=== PATIENT | male | born 1980 | race Caucasian/White ===

== ENCOUNTER 2017-07-28 01:03 | Emergency (ER) | payer SELFPAY ==
[2017-07-28 01:09] VITALS: BP 122/74; PULSE 117; RESP 16; O2SAT 100
[2017-07-28] MEDS ORDERED: SODIUM CHLOR 0.9% 1000 ML INJ 1,000 ML IV SCH (01:35)
[2017-07-28] MEDS ORDERED: SODIUM CHLORIDE 0.9% FLUSH 10 ML FLUSH IV FLUSH PRN (01:45)
[2017-07-28 01:55] VITALS: O2SAT 98
--- NOTE | 2017-07-28 02:36 | PD ---
HPI Chief Complaint: Alcohol/Drug Intoxication Time Seen by Provider: 01:19 Travel History International Travel<30 days: No Contact w/Intl Traveler<30days: No Traveled to known affect area: No History of Present Illness HPI 36-year-old male arrives to the ER by EMS. He was found unresponsive in public. He received Narcan and woke up. He reports abusing IV heroin tonight. Typically he abuses IV methamphetamines. He denies any intention of harming himself or others. There is no suicidal ideation or homicidal ideation. PFSH Past Medical History Tetanus Vaccination: Unknown Influenza Vaccination: No Social History Alcohol Use: Yes Tobacco Use: Yes Substance Use: Yes (dilaudid, meth and heroin) Allergies-Medications (Allergen,Severity, Reaction): Coded Allergies: No Known Allergies (Unverified , 07/28/17) Review of Systems Except as stated in HPI: all other systems reviewed are Neg General / Constitutional: No: Fever Physical Exam Narrative GENERAL: 36-year-old male well-nourished well-developed no acute distress GCS 15 answers questions Vital Signs Date Time Temp Pulse Resp B/P (MAP) Pulse Ox O2 Delivery O2 Flow Rate FiO2 07/28/17 01:55 98 Room Air 07/28/17 01:09 117 16 122/74 (90) 100 SKIN: Warm and dry. HEAD: Atraumatic. Normocephalic. EYES: Pupils equal and round. No scleral icterus. No injection or drainage. ENT: No nasal bleeding or discharge. Mucous membranes pink and moist. NECK: Trachea midline. No JVD. CARDIOVASCULAR: Tachycardia. Rhythm regular. RESPIRATORY: No accessory muscle use. Clear to auscultation. Breath sounds equal bilaterally. GASTROINTESTINAL: Abdomen soft, non-tender, nondistended. Hepatic and splenic margins not palpable. MUSCULOSKELETAL: Extremities without clubbing, cyanosis, or edema. No obvious deformities. NEUROLOGICAL: Awake and alert. No obvious cranial nerve deficits. Motor grossly within normal limits. Five out of 5 muscle strength in the arms and legs. Normal speech. PSYCHIATRIC: No suicidal or homicidal ideation Data Data Last Documented VS Vital Signs Date Time Temp Pulse Resp B/P (MAP) Pulse Ox O2 Delivery O2 Flow Rate FiO2 07/28/17 01:55 98 Room Air 07/28/17 01:09 117 16 122/74 (90) Orders Orders Ecg Monitoring (07/28/17 01:35) Iv Access Insert/Monitor (07/28/17 01:35) Oximetry (07/28/17 01:35) Sodium Chloride 0.9% Flush (Ns Flush) (07/28/17 01:45) Sodium Chlor 0.9% 1000 Ml Inj (Ns 1000 M (07/28/17 01:35) Drug Screen, Random Urine (07/28/17 01:35) Alcohol (Ethanol) (07/28/17 01:35) Ed Discharge Order (07/28/17 02:36) Labs Laboratory Tests Test 07/28/17 01:45 Ethyl Alcohol Level LESS THAN 3 MG/DL MDM Medical Decision Making Medical Screen Exam Complete: Yes Emergency Medical Condition: Yes Medical Record Reviewed: Yes Differential Diagnosis Opioid overdose, amphetamine overdose, suicide intention Narrative Course Patient has been observed here for one half hours. He is mentation has been normal throughout his stay. GCS 15 throughout stay. Patient is requesting to leave at 2:40 AM and has the capacity to do so. Diagnosis Primary Impression: Opioid overdose Qualified Codes: T40.2X1A - Poisoning by other opioids, accidental ( unintentional), initial encounter Additional Impression: IV drug abuse Referrals: [facility] for appointment Med/Other Pt SpecificInfo: No Change to Meds Disposition: 01 DISCHARGE HOME Condition: Stable Bk Cintron MD July 28, 2017 02:36
== END 2017-07-28 02:42 | disposition home or self-care (01) ==
LOC: NEPC 01:03
DX: T40.2X1A Poisoning by other opioids, accidental (unintentional), initial encounter (principal); F15.10 Other stimulant abuse, uncomplicated; Z72.0 Tobacco use
CPT/HCPCS: 80307; 99283; J7030